=== PATIENT | female | born 1995 | race Caucasian/White ===

== ENCOUNTER 2025-04-15 21:46 | Emergency (ER) | payer OTHER ==
[~2025-04-15] VITALS: Ht 165.1 cm; Wt 100.0 kg
[2025-04-15 22:20] VITALS: BP 173/62; TEMP 36.7; O2SAT 99
[2025-04-15 22:22] VITALS: PULSE 71; RESP 18; O2SAT 99
[2025-04-15] MEDS: ACETAMINOPHEN 500MG TABLET PO ONE (22:38)
[2025-04-15 22:59] LABS: BASOPHILS % 0.3 % (0.0-2.0); EOSINOPHILS % 2.2 % (0.0-5.0); HEMATOCRIT. 35.9 % (36.0-48.0); HEMOGLOBIN. 11.8 g/dL (12.0-16.0); LYMPHOCYTES % 31.4 % (20.0-50.0); MEAN PLATELET VOLUME 10.8 fl (7.4-10.4); MONOCYTES % 7.1 % (2.0-8.0); NEUTROPHILS % 59.0 % (40.0-76.0); PLATELET 221 x1000/uL (130-400); RED BLOOD CELL COUNT 4.07 mill/uL (4.2-5.4); RED CELL DISTRIBUTION WIDTH 15.2 % (11.6-14.6)
[2025-04-15 23:10] LABS: HCG SCREEN NEGATIVE
[2025-04-15 23:14] LABS: CREATININE 0.8 mg/dL (0.6-1.0); UREA NITROGEN BLOOD 13 mg/dL (9-23)
[2025-04-15 23:17] LABS: B-HCG QUANTITATIVE < 1 mIU/mL (<6)
[2025-04-15 23:34] LABS: CLARITY URINE CLOUDY (CLEAR); COLOR URINE DARK YELLOW (YELLOW); GLUCOSE URINE NEGATIVE (NEGATIVE); KETONES URINE TRACE (NEGATIVE); NITRITE URINE NEGATIVE (NEGATIVE); OCCULT BLOOD URINE 3+ (NEGATIVE); PH URINE 5.5 (4.5-8.0); PROTEIN URINE 1+ (NEGATIVE); SPECIFIC GRAVITY URINE 1.034 (1.005-1.030)
[2025-04-15 23:35] LABS: LEUKOCYTE ESTERASE URINE 2+ (NEGATIVE); UROBILINOGEN URINE 1.0 E.U./dL (0.2-1.0)
[2025-04-16] MEDS: FAMOTIDINE 20MG TABLET PO ONE (00:12)
[2025-04-16] MEDS: MAGNESIUM/ALUMINUM HYDROXIDE/SIMETHICONE 30ML UDC PO ONE (00:12)
[2025-04-16 01:15] LABS: SQUAMOUS EPITHELIAL CELL URINE 3+ /lpf (RARE/1+); WBC URINE 25-50 /hpf (0-2)
[2025-04-16 01:16] LABS: BACTERIA URINE 2+
[2025-04-16] MEDS ORDERED: NITR-87 MT (01:16)
[2025-04-16] MEDS ORDERED: IOHEXOL-300 100 ML BOTTLE ONE (05:05)
== END 2025-04-16 01:43 | disposition home or self-care (01) ==
LOC: ER 21:46
DX: N93.8 Other specified abnormal uterine and vaginal bleeding (principal); N39.0 Urinary tract infection, site not specified; Z98.84 Bariatric surgery status; Z98.890 Other specified postprocedural states
CPT/HCPCS: 99285; 74177; 80048; 81003; 81025; 84703; 84702; 85025; 86850; 86900; 86901; 87086; 87077; 36415; Q9967